=== PATIENT | female | born 1940 | race Caucasian/White ===

== ENCOUNTER 2017-08-01 11:07 | Outpatient (CLI) | payer MEDICARE, OTHER | END 2017-08-01 11:10 | LOC: LAB 11:07 | PROVIDERS: ATTEND Internal Medicine | DX: E78.5 Hyperlipidemia, unspecified (principal); I10 Essential (primary) hypertension; Z79.899 Other long term (current) drug therapy | CPT/HCPCS: 36415; 80061; 83036 ==

== ENCOUNTER 2018-02-06 12:29 | Outpatient (CLI) | payer MEDICARE, OTHER ==
[2018-02-06 14:30] LABS: eGFR (Non-African) > 60
[2018-02-06 15:20] LABS: BASO % 0.9 % (0.0-1.5); EOS % 3.3 % (0.0-6.8); LYMPH ABS # 2.17 thou/uL (0.60-4.00); MCV 83.8 fL (80.0-100.0); MONOCYTE ABS # 0.54 thou/uL (0.00-0.90); PLATELET COUNT 347 thou/uL (130-400)
== END 2018-02-06 12:30 ==
LOC: LAB 12:29
PROVIDERS: ATTEND Internal Medicine
DX: E78.5 Hyperlipidemia, unspecified (principal); I10 Essential (primary) hypertension
CPT/HCPCS: 36415; 80053; 80061; 82306; 84443; 85025

== ENCOUNTER 2018-08-09 15:04 | Outpatient (CLI) | payer MEDICARE ==
[2018-08-09 15:58] LABS: eGFR (Non-African) > 60
== END 2018-08-09 15:15 ==
LOC: LAB 15:04
PROVIDERS: ATTEND Internal Medicine
DX: I25.9 Chronic ischemic heart disease, unspecified (principal); I10 Essential (primary) hypertension; Z79.899 Other long term (current) drug therapy
CPT/HCPCS: 36415; 80053

== ENCOUNTER 2019-03-06 10:52 | Outpatient (CLI) | payer MEDICARE ==
[2019-03-06 11:39] LABS: BASOPHILS % 0.5 % (0.0-1.5); NEUTROPHILS # 3.5 # k/uL (1.4-7.7)
[2019-03-06 12:11] LABS: HDL 32 mg/dL (>40); eGFR (Non-African) > 60
== END 2019-03-06 10:57 ==
LOC: LAB 10:52
PROVIDERS: ATTEND Internal Medicine
DX: E78.5 Hyperlipidemia, unspecified (principal); I10 Essential (primary) hypertension; R73.09 Other abnormal glucose
CPT/HCPCS: 36415; 80053; 80061; 85025